=== PATIENT | male | born 1955 | race Caucasian/White ===

== ENCOUNTER 2019-03-01 15:57 | Inpatient (IN) ==
[2019-03-01 17:05] LABS: Basophils % 0.5 % (0.0-0.8); Eosinophils # 0.1 10*3/uL (0.0-0.87); Eosinophils % 0.9 % (0.00-10.9); Hematocrit 40.7 VOL% (42.0-52.0); Hemoglobin 13.4 GM/DL (14.0-18.0); Immature Granulocytes % 0.3 %; Immature Granulocytes Absolute 0.02 #; Lymphocytes # 2.3 10*3/uL (1.4-4.0); Lymphocytes % 30.9 % (21.2-54.2); Mean Corpuscular HGB Conc 32.9 GM/DL (32-36); Mean Corpuscular Volume 92.5 FL (87-102); Mean Platelet Volume 11.4 FL (9.6-12.0); Monocytes % 7.7 % (1.7-12.7); Neutrophils % 59.7 % (38.7-73.9); Platelet Count 267 T/CUMM (130-400); Red Cell Distribution Width 13.6 % (9.3-17.3); White Blood Count 7.5 T/CUMM (4-12)
[2019-03-01 17:06] LABS: Apearance,Urine CLEAR (Clear); Bilirubin,Urine Negative (Negative); Blood, Urine Negative (Negative); Glucose,Urine (UA) Negative (Negative); Hyaline Casts,Urine 13 /LPF (0-3); Ketones,Urine 20 mg/dL (Negative); Mucus,Urine Many /LPF (Occasional); Nitrite,Urine Negative (Negative); Protein,Urine 30 MG/DL; RBC,Urine 6 /HPF (0-4); Squamous Epithelial Cell,Urine Occasional /HPF (0-10); Urine Specific Gravity 1.036 (1.001-1.035); WBC,Urine 1 /HPF (0-6)
[2019-03-01 17:07] LABS: Urine Color Yellow (Yellow)
[2019-03-01 17:35] LABS: Albumin 3.5 G/DL (3.4-5.0); Bilirubin,Total 0.4 MG/DL (0.2-1.0); Calcium 9.5 MG/DL (8.5-10.1); Osmolality,Calculated 276.5 MOS/KG (273-304); Total Protein 8.4 G/DL (6.4-8.3)
[2019-03-01] MEDS ORDERED: SODIUM CHLORIDE 0.9% 1,000 ML IV STA (18:53)
[2019-03-01] MEDS ORDERED: MORPHINE 4 MG/1 ML VIAL IM STA (20:01)
[2019-03-01] MEDS ORDERED: ONDANSETRON 4 MG/2 ML VIAL IV STA (20:01)
[2019-03-01] MEDS ORDERED: MORPHINE 4 MG/1 ML VIAL IV STA (20:19)
[2019-03-01] MEDS ORDERED: LOPERAMIDE 1 MG/7.5 ML 30 ML BOTTLE PO PRN (21:40)
[2019-03-01] MEDS ORDERED: SODIUM CHLORIDE 0.9% 1,000 ML IV SCH (22:00)
[2019-03-01] MEDS: SODIUM CHLORIDE 0.9% 1,000 ML IV SCH (23:48)
[2019-03-01] MEDS: metroNIDAZOLE INJ 500 MG in PREMIX 1 EACH IV SCH (23:52)
[2019-03-02] MEDS: MORPHINE 4 MG/1 ML VIAL IV PRN ×3 (02:46→16:54)
[2019-03-02 05:13] LABS: Basophils # 0.1 10*3/uL (0.0-0.2); Basophils % 0.7 % (0.0-0.8); Eosinophils # 0.1 10*3/uL (0.0-0.87); Eosinophils % 1.7 % (0.00-10.9); Hematocrit 36.3 VOL% (42.0-52.0); Immature Granulocytes % 0.3 %; Immature Granulocytes Absolute 0.02 #; Lymphocytes # 2.4 10*3/uL (1.4-4.0); Lymphocytes % 34.1 % (21.2-54.2); Mean Corpuscular HGB Conc 33.1 GM/DL (32-36); Mean Corpuscular Volume 91.9 FL (87-102); Mean Platelet Volume 11.1 FL (9.6-12.0); Monocytes % 9.1 % (1.7-12.7); Neutrophils % 54.1 % (38.7-73.9); Platelet Count 235 T/CUMM (130-400); Red Blood Count 3.95 MC/CUMM (3.8-5.5); Red Cell Distribution Width 13.5 % (9.3-17.3)
[2019-03-02 05:33] LABS: Calcium 8.7 MG/DL (8.5-10.1); Osmolality,Calculated 281.1 MOS/KG (273-304)
[2019-03-02] MEDS: metroNIDAZOLE INJ 500 MG in PREMIX 1 EACH IV SCH ×2 (06:35→14:06)
[2019-03-02] MEDS: ENOXAPARIN 40 MG/0.4 ML SYRINGE SUBCUT SCH (12:18)
[2019-03-02] MEDS: PANTOPRAZOLE 40 MG TABLET PO SCH (12:20)
[2019-03-02 14:07] LABS: Troponin I < 0.015 NG/ML (0.00-0.045)
[2019-03-02 14:25] LABS: Risk Ratio 6.87
[2019-03-02] MEDS ORDERED: ACETAMINOPHEN 325 MG TABLET PO PRN (15:40)
[2019-03-03] MEDS: ATORVASTATIN 40 MG TABLET PO SCH ×2 (00:47→20:15)
[2019-03-03] MEDS: metroNIDAZOLE INJ 500 MG in PREMIX 1 EACH IV SCH ×4 (00:48→21:15)
[2019-03-03] MEDS: MORPHINE 4 MG/1 ML VIAL IV PRN ×3 (07:37→18:00)
[2019-03-03] MEDS ORDERED: MAGNESIUM SULF RIDER 4 GM in PREMIX 1 EACH IV PRN (08:04)
[2019-03-03] MEDS ORDERED: MAGNESIUM SULF RIDER 2 GM in PREMIX 1 EACH IV PRN (08:04)
[2019-03-03 09:03] LABS: Calcium 8.7 MG/DL (8.5-10.1); Osmolality,Calculated 276.4 MOS/KG (273-304)
[2019-03-03] MEDS: PANTOPRAZOLE 40 MG TABLET PO SCH (09:50)
[2019-03-03] MEDS: ASPIRIN EC 81 MG TABLET PO SCH (09:50)
[2019-03-03] MEDS: SODIUM CHLORIDE 0.9% 1,000 ML IV SCH ×2 (10:51→14:02)
[2019-03-03] MEDS: POTASSIUM CHLORIDE 20 MEQ TABLET PO PRN ×2 (12:00→18:00)
[2019-03-03] MEDS: ONDANSETRON 4 MG/2 ML VIAL IV PRN (13:50)
[2019-03-03 14:54] LABS: Basophils # 0.1 10*3/uL (0.0-0.2); Basophils % 1.1 % (0.0-0.8); Eosinophils # 0.1 10*3/uL (0.0-0.87); Eosinophils % 0.8 % (0.00-10.9); Hematocrit 34.4 VOL% (42.0-52.0); Hemoglobin 11.3 GM/DL (14.0-18.0); Immature Granulocytes % 0.2 %; Immature Granulocytes Absolute 0.01 #; Lymphocytes % 29.6 % (21.2-54.2); Mean Corpuscular HGB Conc 32.8 GM/DL (32-36); Mean Corpuscular Volume 93.5 FL (87-102); Mean Platelet Volume 11.4 FL (9.6-12.0); Monocytes % 7.7 % (1.7-12.7); Neutrophils % 60.6 % (38.7-73.9); Platelet Count 248 T/CUMM (130-400); Red Blood Count 3.68 MC/CUMM (3.8-5.5); Red Cell Distribution Width 13.9 % (9.3-17.3); White Blood Count 6.7 T/CUMM (4-12)
[2019-03-03] MEDS: ALBUTEROL/IPRATROPIUM 3 ML NEB RESP TX SCH (20:57)
[2019-03-04] MEDS: ALBUTEROL/IPRATROPIUM 3 ML NEB RESP TX SCH ×4 (02:12→20:12)
[2019-03-04] MEDS: metroNIDAZOLE INJ 500 MG in PREMIX 1 EACH IV SCH ×3 (05:16→23:28)
[2019-03-04] MEDS ORDERED: INDOCYANINE GREEN 25 MG VIAL IV ONE (06:00)
[2019-03-04] MEDS ORDERED: VANCOMYCIN INJ 1,000 MG in SODIUM CHLORIDE 0.9% 250 ML IV ONE (06:00)
[2019-03-04] MEDS: SODIUM CHLORIDE 0.9% 1,000 ML IV SCH ×3 (07:04→15:40)
[2019-03-04] MEDS: PANTOPRAZOLE 40 MG TABLET PO SCH (10:02)
[2019-03-04] MEDS: ASPIRIN EC 81 MG TABLET PO SCH (10:02)
[2019-03-04] MEDS: ONDANSETRON 4 MG/2 ML VIAL IV PRN (10:03)
[2019-03-04] MEDS: MORPHINE 4 MG/1 ML VIAL IV PRN ×3 (10:03→22:01)
[2019-03-04] MEDS ORDERED: DIAZEPAM 5 MG TABLET PO ONE (12:28)
[2019-03-04] MEDS ORDERED: FAMOTIDINE 20 MG TABLET PO ONE (12:29)
[2019-03-04] MEDS ORDERED: TISSUE ADHESIVE 1 EACH APPLICATOR TOP ONE (12:43)
[2019-03-04] MEDS ORDERED: PHENYLEPHRINE DRIP 20 MG/250 ML PREMIX IV ONE ×2 (13:21→15:13)
[2019-03-04] MEDS ORDERED: ALBUMIN 5% 12.5 GM/250 ML VIAL IV ONE (13:43)
[2019-03-04 14:30] LABS: Collection duration of stool Random h; Total Weight of Stool 11 g
[2019-03-04] MEDS ORDERED: HYDROmorphone 2 MG/1 ML VIAL ONE (15:11)
[2019-03-04] MEDS ORDERED: fentaNYL 100 MCG/2 ML VIAL ONE (15:13)
[2019-03-04] MEDS ORDERED: LIDOCAINE 2% 5 ML VIAL ONE (15:13)
[2019-03-04] MEDS ORDERED: SEVOFLURANE 1 UNIT/15 MINUTE INH ONE (15:13)
[2019-03-04] MEDS ORDERED: PROPOFOL 200 MG/20 ML VIAL IV ONE (15:13)
[2019-03-04] MEDS: HYDROmorphone 2 MG/1 ML VIAL IV PRN ×4 (15:14→15:29)
[2019-03-04] MEDS ORDERED: MIDAZOLAM 2 MG/2 ML VIAL ONE (15:14)
[2019-03-04] MEDS ORDERED: ePHEDrine 50 MG/ML AMP ONE (15:14)
[2019-03-04] MEDS ORDERED: GLYCOPYRROLATE 0.4 MG/2 ML VIAL ONE (15:14)
[2019-03-04] MEDS ORDERED: ESMOLOL 100 MG/10 ML VIAL IV ONE (15:14)
[2019-03-04] MEDS ORDERED: ROCURONIUM 100 MG/10 ML VIAL IV ONE (15:15)
[2019-03-04] MEDS ORDERED: SUCCINYLCHOLINE 200 MG/10 ML VIAL ONE (15:15)
[2019-03-04] MEDS ORDERED: NEOSTIGMINE 10 MG/10 ML VIAL ONE (15:15)
[2019-03-04] MEDS ORDERED: ONDANSETRON 4 MG/2 ML VIAL ONE (15:23)
[2019-03-04] MEDS ORDERED: DEXAMETHASONE 4 MG/1 ML VIAL ONE (15:23)
[2019-03-04] MEDS ORDERED: ETOMIDATE 40 MG/20 ML VIAL IV ONE (15:24)
[2019-03-04] MEDS: ATORVASTATIN 40 MG TABLET PO SCH (20:34)
[2019-03-05] MEDS: ALBUTEROL/IPRATROPIUM 3 ML NEB RESP TX SCH ×2 (00:31→08:25)
[2019-03-05] MEDS: ONDANSETRON 4 MG/2 ML VIAL IV PRN (02:10)
[2019-03-05] MEDS: MORPHINE 4 MG/1 ML VIAL IV PRN (02:11)
[2019-03-05] MEDS: SODIUM CHLORIDE 0.9% 1,000 ML IV SCH ×3 (04:01→15:02)
[2019-03-05] MEDS ORDERED: HYDROmorphone 2 MG/1 ML VIAL IV ONE (04:10)
[2019-03-05 08:06] LABS: Basophils % 0.3 % (0.0-0.8); Hematocrit 41.3 VOL% (42.0-52.0); Hemoglobin 13.5 GM/DL (14.0-18.0); Immature Granulocytes % 0.4 %; Immature Granulocytes Absolute 0.06 #; Lymphocytes % 12.9 % (21.2-54.2); Mean Corpuscular HGB Conc 32.7 GM/DL (32-36); Mean Corpuscular Volume 94.5 FL (87-102); Mean Platelet Volume 11.2 FL (9.6-12.0); Monocytes % 5.6 % (1.7-12.7); Neutrophils % 80.8 % (38.7-73.9); Platelet Count 319 T/CUMM (130-400); Red Blood Count 4.37 MC/CUMM (3.8-5.5); Red Cell Distribution Width 14.5 % (9.3-17.3); White Blood Count 15.8 T/CUMM (4-12)
[2019-03-05] MEDS: metroNIDAZOLE INJ 500 MG in PREMIX 1 EACH IV SCH (08:25)
[2019-03-05] MEDS: PANTOPRAZOLE 40 MG TABLET PO SCH (08:25)
[2019-03-05] MEDS: ENOXAPARIN 40 MG/0.4 ML SYRINGE SUBCUT SCH (08:25)
[2019-03-05] MEDS: ASPIRIN EC 81 MG TABLET PO SCH (08:25)
[2019-03-05 08:38] LABS: Bilirubin,Total 0.5 MG/DL (0.2-1.0); Calcium 8.7 MG/DL (8.5-10.1); Osmolality,Calculated 278.3 MOS/KG (273-304); Total Protein 7.3 G/DL (6.4-8.3)
[2019-03-05] MEDS ORDERED: oxyCODONE/ACETAMINOPHEN 5-325 MG TABLET PO ONE (10:01)
[2019-03-05 11:09] VITALS: BP 105/71
[2019-03-05] MEDS ORDERED: KETOROLAC 30 MG/1 ML VIAL IV ONE (11:37)
[2019-03-05 11:47] LABS: Albumin 3.2 G/DL (3.4-5.0); Bilirubin,Total 0.6 MG/DL (0.2-1.0); Calcium 9.4 MG/DL (8.5-10.1); Osmolality,Calculated 279.3 MOS/KG (273-304); Total Protein 7.5 G/DL (6.4-8.3)
[2019-03-05 15:10] LABS: Norovirus G1 PCR Negative (Negative); Norovirus G2 PCR Negative (Negative)
== END 2019-03-05 14:50 | disposition home or self-care (01) | DRG 417 ==
LOC: N.ED 15:57 → N.EDINP 21:36 → N.3E 22:40
PROVIDERS: ADMIT Internal Medicine; ATTEND Internal Medicine

== ENCOUNTER 2019-05-04 06:53 | Inpatient (IN) ==
[2019-04-28 10:30] LABS: Basophils # 0.1 10*3/uL (0.0-0.2); Basophils % 0.4 % (0.0-0.8); Eosinophils # 0.2 10*3/uL (0.0-0.87); Eosinophils % 1.4 % (0.00-10.9); Hemoglobin 14.6 GM/DL (14.0-18.0); Immature Granulocytes % 0.3 %; Immature Granulocytes Absolute 0.04 #; Lymphocytes # 2.7 10*3/uL (1.4-4.0); Lymphocytes % 19.6 % (21.2-54.2); Mean Corpuscular HGB Conc 32.4 GM/DL (32-36); Mean Corpuscular Volume 95.1 FL (87-102); Mean Platelet Volume 11.3 FL (9.6-12.0); Monocytes % 5.7 % (1.7-12.7); Neutrophils % 72.6 % (38.7-73.9); Platelet Count 181 T/CUMM (130-400); Red Blood Count 4.73 MC/CUMM (3.8-5.5); Red Cell Distribution Width 13.8 % (9.3-17.3); White Blood Count 13.6 T/CUMM (4-12)
[2019-04-28 11:14] LABS: Bilirubin,Total 0.5 MG/DL (0.2-1.0); Calcium 9.1 MG/DL (8.5-10.1); Osmolality,Calculated 283.4 MOS/KG (273-304); Total Protein 8.5 G/DL (6.4-8.3)
[~2019-05-04 06:53] MED LIST: VANCOMYCIN 1,000 MG VIAL ONE; VANCOMYCIN INJ 1,000 MG in SODIUM CHLORIDE 0.9% 250 ML IV ONE
[2019-05-04] MEDS ORDERED: LACTATED RINGERS 1,000 ML IV SCH ×2 (07:30→08:00)
[2019-05-04] MEDS ORDERED: GABAPENTIN 400 MG CAPSULE PO ONE (07:45)
[2019-05-04] MEDS ORDERED: DIAZEPAM 5 MG TABLET PO ONE (07:45)
[2019-05-04] MEDS ORDERED: FAMOTIDINE 20 MG TABLET PO ONE (07:45)
[2019-05-04] MEDS ORDERED: HEPARIN 5,000 UNIT/1 ML VIAL ONE (07:46)
[2019-05-04] MEDS ORDERED: VANCOMYCIN 500 MG VIAL ONE (07:46)
[2019-05-04] MEDS ORDERED: GABAPENTIN 400 MG CAPSULE ONE (07:48)
[2019-05-04] MEDS ORDERED: FAMOTIDINE 20 MG TABLET ONE (07:48)
[2019-05-04] MEDS ORDERED: DIAZEPAM 5 MG TABLET ONE (07:49)
[2019-05-04] MEDS ORDERED: diphenhydrAMINE CAP 25 MG CAPSULE PO PRN (07:52)
[2019-05-04] MEDS ORDERED: diphenhydrAMINE 50 MG/1 ML VIAL IV PRN (07:52)
[2019-05-04] MEDS ORDERED: ROPIV 0.2% EPIDURAL SCH (08:00)
[2019-05-04] MEDS ORDERED: FENTANYL EPIDURAL SCH ×2 (08:00→08:30)
[2019-05-04] MEDS ORDERED: MORPHINE 10 MG/10 ML VIAL ONE (08:06)
[2019-05-04] MEDS ORDERED: ROPIVACAINE 0.5% 30 ML VIAL ONE (08:08)
[2019-05-04] MEDS ORDERED: ROPIVACAINE 0.2% EPIDURAL SCH (08:30)
[2019-05-04 11:48] LABS: ABG Base Excess 0.2 MMOL/L (-2.5-2.5); ABG HCO3 24.6 MMOL/L (20-26); ABG Oxygen Saturation 99.5 % (95-100); ABG PCO2 51.4 MM HG (35-48); ABG PH 7.325 (7.35-7.45); ABG TCO2 24.5 MMOL/L (23-27); Glucose Heart Surgery 217 MG/DL (74-106); Hematocrit Heart Surgery 31.5 PERCENT (42-52); Hemoglobin Heart Surgery 10.2 G/DL (14.0-18.0); Ionized Calcium Arterial 1.16 MMOL/L (1.21-1.46); Potassium Heart/CVR 3.7 MMOL/L (3.5-5.1); Sodium Heart/CVR 139 MMOL/L (135-145)
[2019-05-04 11:50] LABS: PCO2 Patient Temp Arterial 46.7 MMHG; PH Patient Temp Arterial 7.353; Patient Temperature 35 CELCIUS
[2019-05-04] MEDS ORDERED: TISSUE ADHESIVE 1 EACH APPLICATOR TOP ONE (13:21)
[2019-05-04] MEDS ORDERED: ALBUTEROL 2.5 MG/3 ML NEB RESP TX PRN ×2 (13:27→13:31)
[2019-05-04] MEDS: FENTANYL EPIDURAL SCH ×2 (13:35→23:14)
[2019-05-04] MEDS: ROPIVACAINE 0.2% EPIDURAL SCH ×2 (13:35→23:14)
[2019-05-04] MEDS ORDERED: PROPOFOL 200 MG/20 ML VIAL IV ONE (13:45)
[2019-05-04] MEDS ORDERED: ONDANSETRON 4 MG/2 ML VIAL ONE (13:46)
[2019-05-04] MEDS ORDERED: fentaNYL 250 MCG/5 ML VIAL ONE (13:46)
[2019-05-04] MEDS ORDERED: METOPROLOL TARTRATE 5 MG/5 ML VIAL IV ONE (13:46)
[2019-05-04] MEDS ORDERED: HEPARIN/NACL 0.9% 2 UNITS/ML 500 ML IV ONE (13:46)
[2019-05-04] MEDS ORDERED: SODIUM BICARBONATE 50 MEQ/50 ML VIAL IV ONE (13:46)
[2019-05-04] MEDS ORDERED: HEPARIN 10,000 UNIT/10 ML VIAL ONE (13:46)
[2019-05-04] MEDS ORDERED: MIDAZOLAM 2 MG/2 ML VIAL ONE (13:46)
[2019-05-04] MEDS ORDERED: SEVOFLURANE 1 UNIT/15 MINUTE INH ONE (13:46)
[2019-05-04] MEDS ORDERED: PHENYLEPHRINE DRIP 20 MG/250 ML PREMIX IV ONE (13:46)
[2019-05-04] MEDS ORDERED: fentaNYL 100 MCG/2 ML VIAL ONE (13:46)
[2019-05-04] MEDS ORDERED: LIDOCAINE 2% 5 ML VIAL ONE (13:46)
[2019-05-04] MEDS ORDERED: ETOMIDATE 40 MG/20 ML VIAL IV ONE (13:47)
[2019-05-04] MEDS ORDERED: NITROGLYCERIN DRIP 50 MG/250 ML BOTTLE IV ONE (13:47)
[2019-05-04] MEDS ORDERED: LACTATED RINGERS 2,000 ML IV ONE (13:47)
[2019-05-04] MEDS ORDERED: NEOSTIGMINE 10 MG/10 ML VIAL ONE (13:47)
[2019-05-04] MEDS ORDERED: PROTAMINE SULFATE 50 MG/5 ML VIAL IV ONE (13:47)
[2019-05-04] MEDS ORDERED: SODIUM CHLORIDE 0.9% 100 ML IV ONE (13:47)
[2019-05-04] MEDS ORDERED: ROCURONIUM 100 MG/10 ML VIAL IV ONE (13:47)
[2019-05-04] MEDS ORDERED: GLYCOPYRROLATE 0.4 MG/2 ML VIAL ONE (13:47)
[2019-05-04] MEDS ORDERED: HYDROmorphone 2 MG/1 ML VIAL ONE (13:52)
[2019-05-04 14:02] LABS: Apearance,Urine CLEAR (Clear); Bilirubin,Urine Negative (Negative); Blood, Urine Negative (Negative); Glucose,Urine (UA) Negative (Negative); Hyaline Casts,Urine 1 /LPF (0-3); Ketones,Urine Negative (Negative); Mucus,Urine Occasional /LPF (Occasional); Nitrite,Urine Negative (Negative); Protein,Urine Negative; RBC,Urine <1 /HPF (0-4); Urine Color Straw (Yellow); Urine Urobilinogen < 2.0 EU/DL (0.2-1.0)
[2019-05-04 14:10] LABS: Basophils # 0.1 10*3/uL (0.0-0.2); Basophils % 0.3 % (0.0-0.8); Eosinophils # 0.1 10*3/uL (0.0-0.87); Eosinophils % 0.4 % (0.00-10.9); Hematocrit 34.9 VOL% (42.0-52.0); Hemoglobin 11.2 GM/DL (14.0-18.0); Immature Granulocytes % 0.5 %; Lymphocytes # 3.7 10*3/uL (1.4-4.0); Lymphocytes % 16.8 % (21.2-54.2); Mean Corpuscular HGB Conc 32.1 GM/DL (32-36); Mean Corpuscular Volume 96.7 FL (87-102); Mean Platelet Volume 11.2 FL (9.6-12.0); Monocytes % 5.2 % (1.7-12.7); Neutrophils % 76.8 % (38.7-73.9); Platelet Count 229 T/CUMM (130-400); Red Blood Count 3.61 MC/CUMM (3.8-5.5); Red Cell Distribution Width 13.5 % (9.3-17.3); White Blood Count 21.9 T/CUMM (4-12)
[2019-05-04] MEDS ORDERED: HYDROmorphone 2 MG/1 ML VIAL IV ONE (14:14)
[2019-05-04] MEDS: LACTATED RINGERS 1,000 ML IV SCH ×2 (14:23→22:44)
[2019-05-04 14:27] LABS: Calcium 7.7 MG/DL (8.5-10.1)
[2019-05-04] MEDS: PHENYLEPHRINE DRIP 40 MG/250 ML PREMIX IV SCH (14:50)
[2019-05-04] MEDS: ALUMINUM/MAGNES/SIMETH MAX STR 30 ML UDCUP NG SCH ×3 (15:52→22:44)
[2019-05-04 16:01] LABS: Band Neutrophils 6 % (0-10); Lymphocytes 13 % (20-55); Platelet Estimate Normal; Segmented Neutrophils 79 % (50-85); Total Cells Counted 100
[2019-05-04] MEDS: PANTOPRAZOLE 40 MG VIAL IV SCH (16:03)
[2019-05-04] MEDS: ONDANSETRON 4 MG/2 ML VIAL IV PRN (17:30)
[2019-05-04 19:27] LABS: Hematocrit 31.6 VOL% (42.0-52.0); Hemoglobin 10.5 GM/DL (14.0-18.0)
[2019-05-05] MEDS: FENTANYL EPIDURAL SCH ×2 (03:28→15:30)
[2019-05-05] MEDS: ROPIVACAINE 0.2% EPIDURAL SCH ×2 (03:28→15:30)
[2019-05-05] MEDS: ONDANSETRON 4 MG/2 ML VIAL IV PRN (04:05)
[2019-05-05] MEDS: ALUMINUM/MAGNES/SIMETH MAX STR 30 ML UDCUP NG SCH ×6 (04:31→22:40)
[2019-05-05 05:05] LABS: Basophils # 0.1 10*3/uL (0.0-0.2); Basophils % 0.3 % (0.0-0.8); Hematocrit 30.5 VOL% (42.0-52.0); Immature Granulocytes % 0.7 %; Immature Granulocytes Absolute 0.14 #; Lymphocytes # 1.4 10*3/uL (1.4-4.0); Lymphocytes % 7.3 % (21.2-54.2); Mean Corpuscular HGB Conc 32.8 GM/DL (32-36); Mean Corpuscular Volume 93.8 FL (87-102); Mean Platelet Volume 11.5 FL (9.6-12.0); Monocytes % 5.6 % (1.7-12.7); Neutrophils % 86.1 % (38.7-73.9); Platelet Count 212 T/CUMM (130-400); Red Blood Count 3.25 MC/CUMM (3.8-5.5); Red Cell Distribution Width 13.5 % (9.3-17.3)
[2019-05-05 05:18] LABS: Calcium 8.1 MG/DL (8.5-10.1); Osmolality,Calculated 284.4 MOS/KG (273-304)
[2019-05-05] MEDS: LACTATED RINGERS 1,000 ML IV SCH ×4 (06:24→16:21)
[2019-05-05] MEDS: PANTOPRAZOLE 40 MG VIAL IV SCH (12:40)
[2019-05-05] MEDS: METOCLOPRAMIDE 10 MG/2 ML VIAL IV SCH ×2 (12:40→18:30)
[2019-05-05] MEDS: PHENYLEPHRINE DRIP 40 MG/250 ML PREMIX IV SCH (16:12)
[2019-05-06] MEDS: METOCLOPRAMIDE 10 MG/2 ML VIAL IV SCH ×4 (00:50→18:20)
[2019-05-06] MEDS: LACTATED RINGERS 1,000 ML IV SCH ×3 (01:47→22:40)
[2019-05-06] MEDS: ALUMINUM/MAGNES/SIMETH MAX STR 30 ML UDCUP NG SCH ×3 (01:48→16:20)
[2019-05-06] MEDS: ROPIVACAINE 0.2% EPIDURAL SCH ×2 (03:47→04:52)
[2019-05-06] MEDS: FENTANYL EPIDURAL SCH ×2 (03:47→04:52)
[2019-05-06 05:06] LABS: Basophils % 0.1 % (0.0-0.8); Hematocrit 28.4 VOL% (42.0-52.0); Hemoglobin 9.3 GM/DL (14.0-18.0); Immature Granulocytes % 0.5 %; Immature Granulocytes Absolute 0.11 #; Lymphocytes # 1.6 10*3/uL (1.4-4.0); Lymphocytes % 7.3 % (21.2-54.2); Mean Corpuscular HGB Conc 32.7 GM/DL (32-36); Mean Corpuscular Volume 93.4 FL (87-102); Mean Platelet Volume 11.9 FL (9.6-12.0); Monocytes % 6.3 % (1.7-12.7); Neutrophils % 85.8 % (38.7-73.9); Platelet Count 183 T/CUMM (130-400); Red Blood Count 3.04 MC/CUMM (3.8-5.5); Red Cell Distribution Width 13.4 % (9.3-17.3); White Blood Count 21.6 T/CUMM (4-12)
[2019-05-06 05:20] LABS: Calcium 8.4 MG/DL (8.5-10.1); Osmolality,Calculated 276.7 MOS/KG (273-304)
[2019-05-06 05:38] LABS: Lymphocytes 5 % (20-55); Platelet Estimate Adequate; Segmented Neutrophils 93 % (50-85); Total Cells Counted 100
[2019-05-06 05:39] LABS: Hypochromasia Slight
[2019-05-06] MEDS ORDERED: KETOROLAC 15 MG/1 ML VIAL IV SCH (10:52)
[2019-05-06] MEDS: KETOROLAC 15 MG/1 ML VIAL IV SCH ×2 (12:50→18:20)
[2019-05-06] MEDS: HYDROmorphone 2 MG/1 ML VIAL IV PRN ×3 (12:50→20:46)
[2019-05-06] MEDS: PANTOPRAZOLE 40 MG VIAL IV SCH (12:50)
[2019-05-06] MEDS: ONDANSETRON 4 MG/2 ML VIAL IV PRN (20:53)
[2019-05-07] MEDS: METOCLOPRAMIDE 10 MG/2 ML VIAL IV SCH ×2 (00:34→06:14)
[2019-05-07] MEDS: HYDROmorphone 2 MG/1 ML VIAL IV PRN ×6 (00:35→23:23)
[2019-05-07] MEDS: KETOROLAC 15 MG/1 ML VIAL IV SCH ×5 (00:37→23:17)
[2019-05-07] MEDS: CLOPIDOGREL 75 MG TABLET PO SCH (10:56)
[2019-05-07] MEDS: LACTATED RINGERS 1,000 ML IV SCH (10:57)
[2019-05-07] MEDS: PANTOPRAZOLE 40 MG VIAL IV SCH (13:48)
[2019-05-07] MEDS: oxyCODONE/ACETAMINOPHEN 5-325 MG TABLET PO PRN (14:09)
[2019-05-07] MEDS: ONDANSETRON 4 MG/2 ML VIAL IV PRN (16:39)
[2019-05-08] MEDS: HYDROmorphone 2 MG/1 ML VIAL IV PRN ×5 (02:46→23:46)
[2019-05-08] MEDS: ONDANSETRON 4 MG/2 ML VIAL IV PRN ×2 (05:36→13:57)
[2019-05-08] MEDS: KETOROLAC 15 MG/1 ML VIAL IV SCH ×4 (05:36→23:43)
[2019-05-08] MEDS: CLOPIDOGREL 75 MG TABLET PO SCH (09:09)
[2019-05-08] MEDS: PANTOPRAZOLE 40 MG VIAL IV SCH (13:57)
[2019-05-08] MEDS: oxyCODONE/ACETAMINOPHEN 5-325 MG TABLET PO PRN (15:45)
[2019-05-09] MEDS: HYDROmorphone 2 MG/1 ML VIAL IV PRN ×5 (03:58→23:22)
[2019-05-09] MEDS: ONDANSETRON 4 MG/2 ML VIAL IV PRN ×3 (04:04→23:24)
[2019-05-09 05:08] LABS: Basophils # 0.1 10*3/uL (0.0-0.2); Basophils % 0.5 % (0.0-0.8); Eosinophils # 0.7 10*3/uL (0.0-0.87); Eosinophils % 7.7 % (0.00-10.9); Hematocrit 25.9 VOL% (42.0-52.0); Hemoglobin 8.6 GM/DL (14.0-18.0); Immature Granulocytes % 0.3 %; Immature Granulocytes Absolute 0.03 #; Lymphocytes # 1.7 10*3/uL (1.4-4.0); Lymphocytes % 17.6 % (21.2-54.2); Mean Corpuscular HGB Conc 33.2 GM/DL (32-36); Mean Corpuscular Volume 92.5 FL (87-102); Monocytes % 7.2 % (1.7-12.7); Neutrophils % 66.7 % (38.7-73.9); Platelet Count 312 T/CUMM (130-400); White Blood Count 9.5 T/CUMM (4-12)
[2019-05-09 05:30] LABS: Calcium 8.5 MG/DL (8.5-10.1); Osmolality,Calculated 269.2 MOS/KG (273-304)
[2019-05-09] MEDS: KETOROLAC 15 MG/1 ML VIAL IV SCH ×3 (05:41→17:16)
[2019-05-09] MEDS: oxyCODONE/ACETAMINOPHEN 5-325 MG TABLET PO PRN ×2 (09:58→17:16)
[2019-05-09] MEDS: POTASSIUM CHLORIDE 20 MEQ TABLET PO PRN ×4 (10:01→17:18)
[2019-05-09] MEDS: CLOPIDOGREL 75 MG TABLET PO SCH (10:01)
[2019-05-09] MEDS: PANTOPRAZOLE 40 MG VIAL IV SCH (13:12)
[2019-05-10] MEDS: KETOROLAC 15 MG/1 ML VIAL IV SCH ×4 (01:20→19:59)
[2019-05-10] MEDS: HYDROmorphone 2 MG/1 ML VIAL IV PRN ×9 (04:25→23:24)
[2019-05-10] MEDS: CLOPIDOGREL 75 MG TABLET PO SCH (09:00)
[2019-05-10] MEDS ORDERED: VANCOMYCIN INJ 750 MG in SODIUM CHLORIDE 0.9% 250 ML IV ONE (09:51)
[2019-05-10] MEDS ORDERED: LACTATED RINGERS 1,000 ML IV SCH (11:30)
[2019-05-10] MEDS ORDERED: LIDOCAINE 1%/EPI INJ 20 ML VIAL ONE (11:42)
[2019-05-10] MEDS ORDERED: BUPIVACAINE MPF 0.25% 30 ML VIAL ONE (11:42)
[2019-05-10] MEDS ORDERED: HYDROmorphone 2 MG/1 ML VIAL ONE (12:20)
[2019-05-10] MEDS ORDERED: ONDANSETRON 4 MG/2 ML VIAL IV PRN (12:20)
[2019-05-10] MEDS ORDERED: ONDANSETRON 4 MG/2 ML VIAL ONE ×2 (12:20→12:25)
[2019-05-10] MEDS ORDERED: LIDOCAINE 2% 5 ML VIAL ONE (12:24)
[2019-05-10] MEDS ORDERED: MIDAZOLAM 2 MG/2 ML VIAL ONE (12:24)
[2019-05-10] MEDS ORDERED: PROPOFOL 200 MG/20 ML VIAL IV ONE (12:24)
[2019-05-10] MEDS ORDERED: SEVOFLURANE 1 UNIT/15 MINUTE INH ONE (12:24)
[2019-05-10] MEDS ORDERED: SUCCINYLCHOLINE 200 MG/10 ML VIAL ONE (12:25)
[2019-05-10] MEDS ORDERED: ROCURONIUM 100 MG/10 ML VIAL IV ONE (12:25)
[2019-05-10] MEDS ORDERED: fentaNYL 100 MCG/2 ML VIAL ONE (12:25)
[2019-05-10] MEDS ORDERED: GLYCOPYRROLATE 0.4 MG/2 ML VIAL ONE (12:25)
[2019-05-10] MEDS ORDERED: ETOMIDATE 40 MG/20 ML VIAL IV ONE (12:25)
[2019-05-10] MEDS ORDERED: NEOSTIGMINE 10 MG/10 ML VIAL ONE (12:26)
[2019-05-10] MEDS: PANTOPRAZOLE 40 MG VIAL IV SCH (15:32)
[2019-05-11] MEDS: KETOROLAC 15 MG/1 ML VIAL IV SCH ×2 (00:59→06:11)
[2019-05-11] MEDS: HYDROmorphone 2 MG/1 ML VIAL IV PRN ×5 (04:14→22:28)
[2019-05-11 04:43] LABS: Hematocrit 23.4 VOL% (42.0-52.0); Hemoglobin 7.7 GM/DL (14.0-18.0)
[2019-05-11] MEDS: CLOPIDOGREL 75 MG TABLET PO SCH (09:00)
[2019-05-11] MEDS ORDERED: SODIUM CHLORIDE 0.9% 1,000 ML IV PRN ×2 (11:50→21:55)
[2019-05-11] MEDS: oxyCODONE/ACETAMINOPHEN 5-325 MG TABLET PO PRN ×2 (14:02→19:36)
[2019-05-11] MEDS: PANTOPRAZOLE 40 MG VIAL IV SCH (14:03)
[2019-05-11 21:04] LABS: Hematocrit 23.4 VOL% (42.0-52.0); Hemoglobin 7.7 GM/DL (14.0-18.0)
[2019-05-12] MEDS: oxyCODONE/ACETAMINOPHEN 5-325 MG TABLET PO PRN ×4 (01:04→15:20)
[2019-05-12] MEDS: HYDROmorphone 2 MG/1 ML VIAL IV PRN ×2 (03:04→20:14)
[2019-05-12 05:30] LABS: Basophils # 0.1 10*3/uL (0.0-0.2); Basophils % 0.7 % (0.0-0.8); Eosinophils # 0.6 10*3/uL (0.0-0.87); Eosinophils % 5.5 % (0.00-10.9); Hematocrit 31.2 VOL% (42.0-52.0); Hemoglobin 10.3 GM/DL (14.0-18.0); Immature Granulocytes % 0.5 %; Immature Granulocytes Absolute 0.06 #; Lymphocytes # 1.8 10*3/uL (1.4-4.0); Lymphocytes % 15.7 % (21.2-54.2); Mean Corpuscular Volume 92.6 FL (87-102); Mean Platelet Volume 11.4 FL (9.6-12.0); Monocytes % 5.8 % (1.7-12.7); Neutrophils % 71.8 % (38.7-73.9); Platelet Count 357 T/CUMM (130-400); Red Blood Count 3.37 MC/CUMM (3.8-5.5); White Blood Count 11.5 T/CUMM (4-12)
[2019-05-12 06:01] LABS: Eosinophils 4 % (0-10); Hypochromasia Slight; Lymphocytes 19 % (20-55); Microcytosis Slight; Ovalocytes Slight; Segmented Neutrophils 69 % (50-85); Total Cells Counted 100
[2019-05-12] MEDS: ONDANSETRON 4 MG/2 ML VIAL IV PRN (13:31)
[2019-05-12] MEDS: PANTOPRAZOLE 40 MG VIAL IV SCH (13:31)
[2019-05-13] MEDS: HYDROmorphone 2 MG/1 ML VIAL IV PRN (02:32)
[2019-05-13 05:22] LABS: Basophils # 0.1 10*3/uL (0.0-0.2); Basophils % 0.7 % (0.0-0.8); Eosinophils # 0.5 10*3/uL (0.0-0.87); Eosinophils % 4.7 % (0.00-10.9); Hematocrit 26.9 VOL% (42.0-52.0); Hemoglobin 9.2 GM/DL (14.0-18.0); Immature Granulocytes % 0.5 %; Immature Granulocytes Absolute 0.05 #; Lymphocytes # 1.3 10*3/uL (1.4-4.0); Lymphocytes % 11.8 % (21.2-54.2); Mean Corpuscular HGB Conc 34.2 GM/DL (32-36); Mean Corpuscular Volume 90.9 FL (87-102); Mean Platelet Volume 10.4 FL (9.6-12.0); Monocytes % 6.6 % (1.7-12.7); Neutrophils % 75.7 % (38.7-73.9); Platelet Count 454 T/CUMM (130-400); Red Blood Count 2.96 MC/CUMM (3.8-5.5); Red Cell Distribution Width 13.8 % (9.3-17.3); White Blood Count 10.6 T/CUMM (4-12)
[2019-05-13] MEDS: oxyCODONE/ACETAMINOPHEN 5-325 MG TABLET PO PRN ×4 (09:03→22:11)
[2019-05-13] MEDS ORDERED: SODIUM PHOSPHATE ENEMA 133 ML BOTTLE RECTAL PRN (09:39)
[2019-05-13] MEDS ORDERED: BISACODYL 5 MG TABLET PO PRN (09:39)
[2019-05-13] MEDS: ONDANSETRON 4 MG/2 ML VIAL IV PRN (12:56)
[2019-05-13] MEDS: BISACODYL 5 MG TABLET PO PRN (12:58)
[2019-05-13] MEDS: PANTOPRAZOLE 40 MG VIAL IV SCH (14:00)
[2019-05-14] MEDS: oxyCODONE/ACETAMINOPHEN 5-325 MG TABLET PO PRN (02:04)
[2019-05-14] MEDS: HYDROmorphone 2 MG/1 ML VIAL IV PRN ×3 (05:37→22:03)
[2019-05-14] MEDS: ONDANSETRON 4 MG/2 ML VIAL IV PRN (05:40)
[2019-05-14] MEDS: BISACODYL 5 MG TABLET PO PRN (09:08)
[2019-05-14] MEDS: MULTIVITAMIN (INTRINSIC) CAPSULE PO SCH (10:28)
[2019-05-14] MEDS: PANTOPRAZOLE 40 MG VIAL IV SCH (14:11)
[2019-05-15] MEDS: HYDROmorphone 2 MG/1 ML VIAL IV PRN ×2 (05:53→23:05)
[2019-05-15] MEDS: MULTIVITAMIN (INTRINSIC) CAPSULE PO SCH (09:16)
[2019-05-15] MEDS: PANTOPRAZOLE 40 MG VIAL IV SCH (13:13)
[2019-05-16] MEDS: HYDROmorphone 2 MG/1 ML VIAL IV PRN (03:14)
[2019-05-16] MEDS: MULTIVITAMIN (INTRINSIC) CAPSULE PO SCH (08:30)
[2019-05-16 12:36] VITALS: BP 134/56
== END 2019-05-16 13:45 | disposition swing bed (61) | DRG 271 ==
LOC: N.PREADM 06:53 → N.SDSINP 06:53 → N.ICU 14:20 → N.3E 05-06 17:28
PROVIDERS: ADMIT Surgery; ATTEND Surgery